=== PATIENT | female | born 1980 | race American Indian/Alaskan Native ===

== ENCOUNTER 2017-10-11 07:00 | Day surgery (SDC) | payer OTHER ==
[~2017-10-11 07:00] MED LIST: ANCEF/STERILE WATER 2 GM/20 ML IV NR; MARCAINE 0.25% INFILTRATI ONE; NACL 0.9% IR ONE; XYLOCAINE 1%/ EPI 1:100,000 INFILTRATI ONE
[2017-10-11] MEDS ORDERED: XYLOCAINE 1%/ EPI 1:100,000 INFILTRATI ONE ×2 (07:21→09:20)
[2017-10-11] MEDS ORDERED: MARCAINE 0.25% INFILTRATI ONE ×2 (07:22→09:20)
[2017-10-11] MEDS ORDERED: DIPRIVAN 10 MG/ML IV ONE (07:38)
[2017-10-11] MEDS ORDERED: XYLOCAINE MPF 2% ONE (07:39)
[2017-10-11] MEDS ORDERED: PEPCID IV NR (08:00)
[2017-10-11] MEDS ORDERED: VERSED IV NR (08:00)
[2017-10-11] MEDS ORDERED: LACTATED RINGERS 1,000 ML IV SCH (08:00)
[2017-10-11] MEDS ORDERED: NACL BACTERIOSTATIC INFILTRATI ONE (08:05)
--- NOTE | 2017-10-11 08:11 | Anesthesia Consultation ---
Anesthesia Consult and Med Hx Date of service: 10/11/17 - Airway Anesthetic Teeth Evaluation: Good ROM Head & Neck: Adequate Mental/Hyoid Distance: Adequate Mallampati Class: Class I Intubation Access Assessment: Probably Good - Pulmonary Exam CTA: No - Cardiac Exam Cardiac Exam: RRR - Pre-Operative Health Status ASA Pre-Surgery Classification: ASA2 Proposed Anesthetic Plan: MAC - Pulmonary Hx Smoking: No Hx Asthma: No Hx Respiratory Symptoms: No SOB: No COPD: No Home Oxygen Therapy: No Hx Pneumonia: No Hx Sleep Apnea: No - Cardiovascular System Hx Hypertension: Yes (2006) Hx Coronary Artery Disease: No Hx Heart Attack/AMI: No Hx Angina: No Hx Percutaneous Transluminal Coronary Angioplasty (PTCA): No Hx Cardia Arrhythmia: No Hx Pacemaker: No Hx Internal Defibrillator: No Hx Valvular Heart Disease: No Hx Heart Murmur: No Hx Peripheral Vascular Disease: No - Central Nervous System Hx Neuromuscular Disorder: No Hx Seizures: No CVA: No Hx Back Pain: No Hx Psychiatric Problems: No - Gastrointestinal Hx Gastroesophageal Reflux Disease: Yes - Endocrine Hx Renal Disease: No Hx End Stage Renal Disease: No Hx Cirrhosis: No Hx Liver Disease: No Hx Insulin Dependent Diabetes: No Hx Non-Insulin Dependent Diabetes: No Hx Thyroid Disease: No Hx Hypothyroidism: No Hx Hyperthyroidism: No - Hematic Hx Anemia: No Hx Sickle Cell Disease: No - Other Systems Hx Alcohol Use: No Hx Substance Use: No Hx Cancer: No Hx Obesity: No
[2017-10-11] MEDS ORDERED: DILAUDID IV PRN (08:27)
--- NOTE | 2017-10-11 08:27 | Anesthesia Day of Surgery ---
Anesthesia Day of Surgery - Day of Surgery Patient Examined: Yes Patient H&P Reviewed: Yes Patient is NPO: Yes
[2017-10-11] MEDS ORDERED: NACL 0.9% IR ONE (09:44)
[2017-10-11] MEDS ORDERED: DILAUDID ONE (09:47)
--- NOTE | 2017-10-11 09:52 | Operative Report ---
Operative Report Operative Report: Date of procedure: 10/11/2017 Pre-operative diagnosis: Right forearm Soft tissue mass Post-operative diagnosis: Same Procedure name(s): Excision of right forearm soft tissue mass Surgeon: Chong Samano MD Bar Host: None Anesthesia: Mac, 0.25% Marcaine, 1% lidocaine EBL: Minimal Complications: None Instrument Count: Accurate Indications: This is a 37-year-old female with a history of an enlarging mass in the right forearm. She was offered the above named procedures of possible diagnostic and therapeutic modality. The risks and benefits were discussed until all questions were answered. She was subsequently brought to the OR. Findings: 11 cm x 7 cm right forearm soft tissue mass Procedure: We reviewed the informed consent. The patient was then placed supine upon the table. After adequate anesthesia was reached, the patient was prepped and draped in the usual sterile fashion. We infiltrated local anesthetic in a field block manner. We then made an incision through the skin using a 15 blade. Dissection was carried down to the soft tissue mass and was dissected free from surrounding fascial attachments. The findings were consistent with what was noted above. We the mass and handed off the table to be sent to pathology for further evaluation. We then ensured hemostasis. Approximated the subcutaneous tissues using a 3-0 Vicryl. We used 4-0 Monocryl to close the skin. The wound was bandaged sterilely. The patient tolerated procedure well, was awakened and transferred to recovery room in no apparent distress.
--- NOTE | 2017-10-11 09:55 | Short Stay Summary ---
Short Stay Documentation Date of service: 10/11/17 - History H&P: obtained from office - Allergies and Medications Current Medications: Allergies clindamycin Allergy (Verified 10/10/17 08:49) Hives Home Medications Medication Instructions Recorded Confirmed Last Taken Type Amlodipine Besylate/Benazepril 1 each PO DAILY 10/10/17 10/11/17 10/11/17 06:10 History [Amlodipine-Benazepril 5-20 mg] Hydrochlorothiazide [HCTZ] 25 mg PO QDAY 10/10/17 10/11/17 10/10/17 History Omeprazole 20 mg PO DAILY 10/10/17 10/11/17 10/10/17 History Active Medications Cefazolin Sodium (Ancef/Sterile Water 2 Gm/20 Ml) 2 gm IV PREOP NR Stop: 10/11/17 23:59 Famotidine (Pepcid) 20 mg IV PREOP NR Stop: 10/11/17 13:00 Last Admin: 10/11/17 08:30 Dose: 20 mg Hydromorphone HCl (Dilaudid) 0.5 mg IV Q10MIN PRN PRN Reason: Pain , Severe (7-10) Stop: 10/11/17 15:00 Lactated Ringer's (Lactated Ringers) 1,000 mls @ 75 mls/hr IV DIRECT MAYO Last Admin: 10/11/17 08:15 Dose: 75 mls/hr Midazolam HCl (Versed) 2 mg IV PREOP NR Stop: 10/11/17 23:59 Last Admin: 10/11/17 08:33 Dose: 2 mg - Brief post op/procedure progress note Date of procedure: 10/11/17 Pre-op diagnosis: right forearm soft tissue mass Post-op diagnosis: same Procedure: Excision of right forearm soft tissue mass Anesthesia: MAC Findings: 11 cm x 7 cm soft tissue mass Surgeon: TIANA HOLCOMB Estimated blood loss: minimal Pathology: list (right forearm soft tissue mass) Specimen disposition: to lab Condition: stable - Disposition Condition at discharge: Stable Disposition: [id number] TO HOME OR SELFCARE Short Stay Discharge Plan Activity: no restrictions Diet: regular Wound: remove dressing (in 2 days) Follow up with: STANLEY HUYNH MD [Primary Care Provider] - 7 Days TIANA HOLCOMB MD [Staff Physician] - 7 Days Prescriptions: traMADol [Ultram 50 MG tab] 50 mg PO Q6HR PRN #20 tablet PRN Reason: Pain
[2017-10-11 10:20] VITALS: BP 142/98
--- NOTE | 2017-10-11 14:13 | Post Anesthesia Evaluation ---
- Post Anesthesia Evaluation Patient Participated: Yes Airway Patent: Yes Stable Respiratory Function: Yes Nausea/Vomiting: No Temp > 96.8F: Yes Pain Manageable: Yes Adequeate Hydration: Yes Anesthesia Complications: No
== END 2017-10-11 10:50 | disposition home or self-care (01) ==
LOC: OR 07:00
PROVIDERS: ATTEND Surgery
DX: M79.9 Soft tissue disorder, unspecified (principal); I10 Essential (primary) hypertension; K21.9 Gastro-esophageal reflux disease without esophagitis; Z88.1 Allergy status to other antibiotic agents
CPT/HCPCS: 25071; 36415; 81025; 84132; 88307; J0690; J1170; J2250; J2704; J7120